=== PATIENT | male | born 1950 | race Caucasian/White ===

== ENCOUNTER 2017-06-08 06:58 | Day surgery (SDC) | payer MEDICARE ==
[~2017-06-08] VITALS: Ht 177.8 cm; Wt 81.6 kg
--- NOTE | 2017-06-08 08:54 | Operative Note ---
Endoscopy Report Date: 06/08/17 Preoperative diagnosis: Screening Procedure Type of procedure: Total colonoscopy with polypectomy by snare and biopsy forceps Indications:Patient is a 67-year-old white male referred from Dr. Mathews for essentially screening colonoscopy. Patient states that he "needs to get checked ". He does have a very long-standing history of constipation for "all my life". He has no symptoms other than chronic constipation. He's never had prior colonoscopy. He's on numerous pain medications including muscle relaxants, narcotics, gabapentin 4 low back pain. He states that "medications don't work on me". He has no family history of colon cancer but his [id number] apparently did recently undergo surgery for colon cancer. Consent was obtained and patient was taken to same-day surgery endoscopy procedure room. He was positioned in a lateral decubitus position. Adequate intravenous sedation was achieved with anesthesia titration of propofol. Variable stiffness Olympus colonoscope was inserted via the anus. With difficulty was ultimately able to be advanced to the cecum. He had a very atonic very floppy colon. Ileocecal valve and appendiceal orifice were clearly identified. Colonoscope was withdrawn through the colon. There was several very small diminutive polyps encountered. He had a polyp near the hepatic flexure in the ascending colon which was removed. Most additional polyps were in the sigmoid colon. He was noted to have significant diverticulosis of the sigmoid colon but no evidence of any diverticulitis. Retroflexion revealed noninflamed internal hemorrhoids. Colonoscope was withdrawn. Findings 1. several polyps 2. atonic floppy colon 3. Polyp (diverticulosis) Follow-Up Follow-Up: Patient may benefit from fiber supplementation and GlycoLax. Likely plan for repeat colonoscopy in 3 years. at [id number]
[2017-06-08 09:47] VITALS: BP 144/75
== END 2017-06-08 09:36 | disposition home or self-care (01) ==
LOC: SDC 06:58
PROVIDERS: Surgery
PROC: 0DBN8ZX Excision of Sigmoid Colon, Via Natural or Artificial Opening Endoscopic, Diagnostic (ICD-10-PCS; 2017-06-08)
PROC: 0DBN8ZX Excision of Sigmoid Colon, Via Natural or Artificial Opening Endoscopic, Diagnostic (ICD-10-PCS; 2017-06-08)
PROC: 0DBK8ZX Excision of Ascending Colon, Via Natural or Artificial Opening Endoscopic, Diagnostic (ICD-10-PCS; principal; 2017-06-08 07:30)
DX: Z12.11 Encounter for screening for malignant neoplasm of colon (principal); K63.5 Polyp of colon; K64.8 Other hemorrhoids